=== PATIENT | male | born 1980 | race Caucasian/White ===

== ENCOUNTER → 2017-06-25 | Outpatient (CLI) | payer BC ==
--- NOTE | 2017-06-25 10:18 | MR ---
EXAMINATION TYPE: MR brain and iac wo/w con DATE OF EXAM: 06/25/2017 COMPARISON: NONE HISTORY: Tinnitus, SALAZAR, Cranial nerve disorder, dizzy TECHNIQUE: Multiplanar, multisequence images of the brain and brainstem is performed without and with IV contras t, utilizing 12 mL intravenous Gadavist . FINDINGS: Diffusion weighted images demonstrate no evidence of a recent infarct or other diffusion ab normality. There is no extra-axial fluid collection or significant white matter signal abnormality. The ventricular system and cisternal spaces are normal in size and appearance. The brain volume is age appropriate. Midline structures demonstrate normal morphology. The craniocervical junction appears within normal limits. Post contrast images demonstrate no abnormal enhancement. The dural venous sinuses appear pa tent. The visualized sinuses are clear and the globes are intact. There is no evidence of cerebellar pontine angle mass. The 7th and 8th cranial nerve roots demonstrat e no abnormal enhancement. No focal mass is seen surrounding the 7th or 8th cranial nerves to indicat e acoustic for neuroma. Mastoid air cells are well aerated. Brainstem is unremarkable. No widening of the porus acusticus. IMPRESSION: Unremarkable MRI of the brain and IACs with no evidence of abnormal enhancement of the 7t h or 8th cranial nerves are acoustic schwannoma.
== END | disposition home or self-care (01) ==
LOC: RADMRIMAIN 08:22
PROVIDERS: ATTEND Otolaryngology
DX: G52.9 Cranial nerve disorder, unspecified (principal); H93.19 Tinnitus, unspecified ear; R51 Headache
CPT/HCPCS: 70553; A9581

== ENCOUNTER 2017-07-23 07:51 | Emergency (ER) | payer BC ==
[2017-07-23 08:00] VITALS: BP 153/86; PULSE 87; RESP 20; TEMP 98.8
[2017-07-23] MEDS ORDERED: DEXAMETHASONE SOD PHOSPHATE 10 MG/ML 1 ML VIAL IM STA (08:04)
[2017-07-23] MEDS ORDERED: AMOXICILLIN 500MG STARTER PACK 3 CAP BTL PO STA (08:05)
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
== END 2017-07-23 08:28 | disposition home or self-care (01) ==
LOC: EC 07:51
DX: J02.9 Acute pharyngitis, unspecified (principal); R06.00 Dyspnea, unspecified; F17.200 Nicotine dependence, unspecified, uncomplicated; Z79.899 Other long term (current) drug therapy
CPT/HCPCS: 99283 ×2; 96372 ×2; J1100

== ENCOUNTER → 2018-06-06 | Outpatient (CLI) | payer BC | END | disposition home or self-care (01) | LOC: RADUSWWP 13:06 | PROVIDERS: ATTEND Family Medicine | DX: I73.9 Peripheral vascular disease, unspecified (principal) | CPT/HCPCS: 93923 ==

== ENCOUNTER 2018-06-19 11:58 | Emergency (ER) | payer BC ==
[2018-06-19 12:03] VITALS: RESP 18
[2018-06-19 12:59] LABS: Amphetamine Screen,Urine Not Detected (NotDetected); Barbiturate Screen,Urine Not Detected (NotDetected); Benzodiazepines Screen,Urine Detected (NotDetected); Cocaine Screen,Urine Not Detected (NotDetected); Methadone Screen, Urine Not Detected (NotDetected); Opiate Screen,Urine Not Detected (NotDetected); Oxycodone Screen, Urine Not Detected (NotDetected); Phencyclidine Screen,Urine Not Detected (NotDetected); Tricyclic Antidepressant,Urine Not Detected (NotDetected); Urn Cannabinoid Scrn Detected (NotDetected)
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
[2018-06-19 13:46] VITALS: BP 114/76; PULSE 64; TEMP 97.7
== END 2018-06-19 13:44 | disposition home or self-care (01) ==
LOC: EC 11:58
DX: F32.9 Major depressive disorder, single episode, unspecified (principal); F17.200 Nicotine dependence, unspecified, uncomplicated; Z79.899 Other long term (current) drug therapy
CPT/HCPCS: 80306; 82075; 99284

== ENCOUNTER → 2019-09-01 | Outpatient (CLI) | payer BC ==
--- NOTE | 2019-09-01 13:39 | CT ---
EXAMINATION TYPE: CT ankle RT wo con DATE OF EXAM: 09/01/2019 COMPARISON: None available HISTORY: 38-year-old male right ankle pain following fall TECHNIQUE: Contiguous axial scanning of the right ankle without IV contrast. Coronal and sagittal rec onstructions performed. 3-D reconstructions generated on a dedicated workstation. CT DLP: 260.9 mGycm Automated exposure control for dose reduction was used. FINDINGS: Overlying plaster cast. There is a comminuted fracture of the distal tibial metaphysis and epiphysis. Comminution and nondisp laced fracture fragments extend to the anterior colliculus of the medial malleolus. There is additional comminution which extends along the anterior half of the distal tibia disrupting the articular surface. There is a articular measuring 2.4 cm wide by 3.0 cm AP. Large fragment compri sing the anterior inferior tibial tubercle measuring 5.1 cm craniocaudal by 3.9 cm wide by 1.7 cm AP. There is a second dominant fracture fragment measuring 2.4 x 1.3 cm embedded within the diastases wit h cortex rotated into the fracture site. Number of additional smaller comminuted fracture fragments a re present. 9 mm corticated ossific density below the distal fibula suggesting sequela of remote injury. There is additional 1.1 cm wide and 1.0 cm AP osteochondral injury of the anterior to mid medial wilbert r dome and a second impaction fracture of the posterior lateral talar dome measuring 1.6 cm AP by 9 m m wide and with 3 mm articular surface depression. Associated generalized soft tissue swelling. IMPRESSION: 1. Comminuted impacted fracture of the distal tibial metaphysis and epiphysis. Nondisplaced comminuti on extends into the anterior colliculus of the medial malleolus. 2. There is a diastatic dominant fracture fragment incorporating the anterior inferior tibial tubercl e measuring 5.1 x 3.9 x 1.7 cm. The diastases results in articular surface disruption and a bony gap of the distal tibia measuring 3.0 x 2.4 cm. 3. A second dominant fracture fragment measuring 2.4 x 1.3 cm embedded within the diastases with dewey ex rotated into the fracture site. A number of additional smaller comminuted fracture fragments are p resent. 4. 2 osteochondral lesions/impaction fractures of the talar dome (1.1 x 1.0 cm along the anterior to mid medial talar dome and the second measuring 1.6 x 0.9 cm along the posterior lateral talar dome an d 3 mm articular surface depression).
== END | disposition home or self-care (01) ==
LOC: RADCTMAIN 12:36
PROVIDERS: ATTEND Orthopaedic Surgery
DX: S82.251A Displaced comminuted fracture of shaft of right tibia, initial encounter for closed fracture (principal); S82.54XA Nondisplaced fracture of medial malleolus of right tibia, initial encounter for closed fracture; M94.9 Disorder of cartilage, unspecified

== ENCOUNTER 2019-09-10 08:31 | Day surgery (SDC) | payer BC ==
[2019-09-09 11:50] VITALS: BMI 34.0
[~2019-09-10 08:31] MED LIST: DEXAMETHASONE SOD PHOSPHATE 10 MG/ML 1 ML VIAL IV ONE; HYDROmorphone 0.5 MG/0.5 ML SYRINGE IVP PRN; LACTATED RINGERS 1,000 ML IV SCH; LIDOCAINE 1% (10MG/ML) FOR IV START INTRADERMA PRN; ONDANSETRON 4 MG/2 ML VIAL IVP ONE; SCOPOLAMINE 1.5MG/72HR PATCH TRANSDERM ONE; ceFAZolin 3 GM in SODIUM CHLORIDE 0.9% 100 ML IVPB ONE
[2019-09-10 08:59] VITALS: TEMP 98
[2019-09-10] MEDS ORDERED: MIDAZOLAM 2 MG/2 ML VIAL IV ONE (09:33)
[2019-09-10] MEDS ORDERED: fentaNYL (PF) 50 MCG/ML 2 ML AMP IV ONE (09:33)
[2019-09-10] MEDS ORDERED: ePHEDrine SULFATE/0.9% NACL/PF 50 MG/5 ML SYRINGE IV ONE (10:08)
[2019-09-10] MEDS ORDERED: MIDAZOLAM 2 MG/2 ML VIAL ONE (10:08)
[2019-09-10] MEDS ORDERED: LIDOCAINE 1% INJ 10MG/ML (20 ML MDV) ONE (10:08)
[2019-09-10] MEDS ORDERED: KETOROLAC 30 MG/ML 1 ML VIAL ONE (10:08)
[2019-09-10] MEDS ORDERED: fentaNYL (PF) 50 MCG/ML 2 ML AMP ONE (10:08)
[2019-09-10] MEDS ORDERED: PROPOFOL 10 MG/ML 20 ML VIAL IV ONE (10:08)
[2019-09-10] MEDS ORDERED: LIDOCAINE 2%-EPI 1:100,000 20 ML VIAL ONE (10:08)
[2019-09-10] MEDS ORDERED: ROPIVACAINE 5 MG/ML 30 ML VIAL ONE (10:08)
--- NOTE | 2019-09-10 10:48 | P.ANPRN ---
Procedure Note - Anesthesia - Nerve Block Performed Right Popliteal Single Time Out Performed: Yes Date of Procedure: 09/10/19 Procedure Start Time: Procedure Stop Time: Location of Patient: PreOp Indication: Acute Post-Operative Pain, Dx/Pain Location, Requested by Surgeon Sedation Type: Sedate with meaningful contact maintained Preparation: Sterile Prep Position: Supine Catheter: None Needle Types: Pajunk Needle Gauge: 18 Ultrasound used to visualize needle placement: Yes Ultrasound used to observe medication spread: Yes Injectate: Other (see comment) (10ml 0.5% Ropivacaine + 10ml 2% Lidocaine with 1:200,000 epi + 4mg Dexamethasone) Blood Aspirated: No Pain Paresthesia on Injection Noted: No Resistance on Injection: Normal Image Stored and Saved: Yes Events: Uneventful and Well Tolerated
--- NOTE | 2019-09-10 12:06 | FL ---
EXAMINATION TYPE: FL guidance operating room, XR ankle limited RT DATE OF EXAM: 09/10/2019 CLINICAL HISTORY: Right ankle fracture. TECHNIQUE: Fluoroscopy. Limited intraoperative views right ankle. COMPARISON: CT right ankle September 01, 2019. FINDINGS: Fluoroscopic guidance was provided during open reduction internal fixation procedure perfo rmed by Dr. Cordova. A total of 1.49 minutes of fluoroscopic time was utilized during the procedure and 5 spot intraoperative spot images are acquired. Intraoperative spot images show placement of a lateral fixating plate extending anteriorly distal tib ial level with additional fixating screw through the medial malleolus. Satisfactory alignment is seen after reduction and fixation. IMPRESSION: As Above.
--- NOTE | 2019-09-10 12:09 | P.OP ---
Date of Procedure: 09/10/19 Preoperative Diagnosis: 1. Right intra-articular distal tibial pilon fracture 2. Current every day cigarette smoker 3. BMI of 35 Postoperative Diagnosis: Same Procedure(s) Performed: 1. Open reduction and internal fixation of right distal tibia Pilon fracture 2. Application of short leg splint by physician, right leg Anesthesia: nilay SUAREZ Surgeon: Renard Cordova Bender Machine Operator #1: Deric Bradley Estimated Blood Loss (ml): 10 IV fluids (ml): 1,200 Pathology: none sent Condition: stable Disposition: PACU Indications for Procedure: The patient is a very pleasant 38-year-old male with a medical history significant for cigarette smoking who presented to my office with a distal tibia pilon fracture. He was sent for computed tomography scan which showed a large anterolateral fragment with a large intercalary osteochondral fragment. There is significant disruption of the joint surface and a nondisplaced fracture in the anterior colliculus of the medial malleolus. I recommended open reduction and internal fixation in an attempt to restore stability to the ankle and aligned the joint surface. The patient understands the severity of this intra- articular injury and the high likelihood of developing arthritis. We decided to perform a straight anterior approach in the event that he develops arthritis and requires a fusion in the future. We discussed the risks and benefits of surgery including but not limited to risk of anesthesia, infection, delayed wound healing, superficial wound necrosis, nonunion, malunion, post radical arthritis, stiffness, damage to local blood vessels or nerves, DVT, PE, other medical complications, and inability to regain preinjury level of function, and possibly loss of life or limb. The patient voiced his understanding that we'll be to the most common complications other less common complications are possible. He provided his verbal and written consent to go forward with surgery. Description of Procedure: The patient was identified in preoperative holding and the correct right leg was marked with my initials. I reviewed the consent form with the patient and all of his questions were answered. A block was given by anesthesia. The patient was then brought back to the operating room by anesthesia. He was transferred to the OR table where a general anesthetic and preoperative antibiotics were given. A tourniquet was applied to the proximal aspect of the right leg. A bump was placed under the right buttock to internally rotate the leg. A ramp was placed under the right leg to facilitate imaging. All bony prominences were well-padded. The right leg was then prepped and draped in the standard sterile fashion. Prior to starting surgery timeout was performed identifying the correct patient, operative extremity, and procedure. The patient's leg was then elevated, exsanguinated with an Esmarch bandage, and the tourniquet was inflated to 250 mmHg. I began outlining a straight anterior approach to the ankle. Skin incision was made with a scalpel and dissection was carried down carefully through subcutaneous tissues taking care to not undermine the wound. The superficial peroneal nerve was identified and carefully retracted. Crossing veins were controlled with electrocautery. The extensor retinaculum was incised longitudinally in line with the skin incision. I bluntly developed the interval between the tibialis anterior and EHL tendon. Crossing vessels were controlled with electrocautery. The periosteum over the distal tibial sharply incised. The periosteum distally. Hemorrhagic and the fracture site was identified. Early clot and callus was carefully debrided with a scalpel. I was able to carefully booked open the anterolateral fracture to gain access to the ankle joint. There were small osteochondral fragments which were debrided. There was one large intercalary fragment that was flipped 90. This was completely devoid of any soft tissue connections. This piece was removed and handed off to the back table. The joint was thoroughly irrigated to remove debris. A loose osteochondral fragment was then keyed back into the joint and held with a K wire. I then booked closed the anterolateral fragment using a dental pick. A [id number] reduction clamp was used to hold this fragment reduced once the apex of the fracture was keyed in anatomically. The second сергей of the clamp was placed over the posterior medial tibia through stab incision. Clinically at the apex of the fracture appeared anatomically reduced and there is no gapping of the fracture line. Fluoroscopy was used to verify reduction on both an AP and lateral view. I then placed a short anterolateral plate through the wound and held in place with K wires. The position of the plate was verified. A nonlocking 3.5 mm screw was placed just proximal to the apex of the fracture bringing it down to bone. Distally the plate appeared to be sitting in excellent position. Proximally the plate was sitting slightly posterior but on the lateral view it was still centered on the tibia. A nonlocking 3.5 screw was placed in the most proximal hole. I then placed a nonlocking 3.5 mm lag screws distally to generate additional compression across the anterolateral fragment. 2 locking screws were placed distally and a final locking screws placed proximal to the fracture. Due to the computed tomography scan showing a nondisplaced anterior calyculus medial malleolus I placed a percutaneously nonlocking 2.7 mm screw through the anterior calyculus. Final fluoroscopic images were taken showing excellent reduction on the lateral view of the plafond and a stable ankle mortise. The wound was thoroughly irrigated. The extensor retinaculum was closed with a running 0 Vicryl. The deep subcutaneous fat layer was closed with interrupted 2-0 Vicryl. The skin was closed with 3-0 Monocryl. The skin was closed with 3-0 nylon Algor modification of the Donati stitch. The tourniquet was let down. I verified that all instrument, sponge, and sharp counts were correct. A sterile dressing was applied. A well-padded bulky Whitman splint was placed with the ankle at neutral. The patient was awoken from his anesthetic, transferred from the OR table to the [facility], and brought to recovery having tolerated the procedure well. Deric Bradley PA-C was required as a skilled education administrative assistant for patient positioning, surgical exposure, retraction, placement of hardware, closure of wound, and application of splint. Plan: The patient is going to be discharged home as an outpatient if his comfort will. If he needs to stay overnight for pain control I think that is reasonable given his fracture. If he states he will require 2 doses of postoperative antibiotics. He will need DVT prophylaxis with Lovenox while in-house and can discharge home on aspirin. He is to remain strictly nonweightbearing on his operative extremity.
[2019-09-10] MEDS ORDERED: HYDROmorphone 1 MG/ML 1 ML SYRINGE IVP PRN (12:29)
[2019-09-10] MEDS ORDERED: HYDROmorphone 0.5 MG/0.5 ML SYRINGE IVP PRN ×2 (12:29)
[2019-09-10] MEDS ORDERED: ONDANSETRON 4 MG/2 ML VIAL IVP PRN (12:29)
[2019-09-10] MEDS ORDERED: SENNOSIDES-DOCUSATE SODIUM 1 EACH TAB PO PRN (12:29)
[2019-09-10] MEDS ORDERED: HYDROcodone/APAP 5-325MG 1 EACH TAB PO PRN ×2 (12:29)
[2019-09-10] MEDS ORDERED: LACTATED RINGERS 1,000 ML IV SCH (12:30)
[2019-09-10] MEDS ORDERED: LACTATED RINGERS 1,000 ML IV ONE (12:46)
[2019-09-10 13:34] VITALS: RESP 16
[2019-09-10 13:56] VITALS: BP 141/84; PULSE 68
[2019-09-11] MEDS ORDERED: ENOXAPARIN 40 MG/0.4 ML SYRINGE SQ SCH (09:00)
== END 2019-09-10 14:19 | disposition home or self-care (01) ==
LOC: OR 08:31 → EDSTATUS 10:05 → OR 14:19
PROVIDERS: ATTEND Orthopaedic Surgery
DX: S82.874A Nondisplaced pilon fracture of right tibia, initial encounter for closed fracture (principal); F17.210 Nicotine dependence, cigarettes, uncomplicated; W17.89XA Other fall from one level to another, initial encounter; Y93.39 Activity, other involving climbing, rappelling and jumping off; Z68.35 Body mass index [BMI] 35.0-35.9, adult
CPT/HCPCS: 27827; 64447; 64450; 76942; 87635; 73600; C1713; J2250; J1100; J0690; J2405; J2001; J3010; J1885; J2795; J2704; J1170; 64445

== ENCOUNTER 2024-07-08 21:00 | Emergency (ER) | payer BC ==
[2024-07-08 21:10] VITALS: BP 164/85; PULSE 83; RESP 18; TEMP 98.2
[2024-07-08 22:06] LABS: Amphetamine Screen,Urine Not Detected (NotDetected); Barbiturate Screen,Urine Not Detected (NotDetected); Benzodiazepines Screen,Urine Not Detected (NotDetected); Cocaine Screen,Urine Not Detected (NotDetected); Methadone Screen, Urine Not Detected (NotDetected); Opiate Screen,Urine Not Detected (NotDetected); Oxycodone Screen, Urine Not Detected (NotDetected); Phencyclidine Screen,Urine Not Detected (NotDetected); Tricyclic Antidepressant,Urine Detected (NotDetected); Urn Cannabinoid Scrn Detected (NotDetected)
--- NOTE | 2024-07-08 23:20 | ED ---
Psych HPI - General Chief Complaint: Psychiatric Symptoms Stated Complaint: Mental Health Time Seen by Provider: 07/08/24 21:12 Source: patient, RN notes reviewed Mode of arrival: ambulatory Limitations: no limitations - History of Present Illness Initial Comments: 43-year-old male presents emergency department with chief complaint of anxiety, panic attacks. Patient states symptoms have been increasing to the point where he states he is at his breaking point. Patient denies any current plan to harm self. Denies any homicidal nation. He does use marijuana denies any alcohol abuse he is on multiplications for anxiety without relief of symptoms. Patient denies any psychiatrist or counseling - Related Data Home Medications Medication Instructions Recorded Confirmed Ibuprofen [Advil] 200 mg PO DIRECTED PRN 09/09/19 09/10/19 Multivitamins, Thera [Multivitamin 1 tab PO DAILY 09/09/19 09/10/19 (formulary)] Naproxen Sodium [Aleve] 220 mg PO DAILY PRN 09/09/19 09/10/19 Albers (Unknown Dose) 1 tab PO DIRECTED 09/09/19 09/10/19 Previous Rx's Medication Instructions Recorded Aspirin 325 mg PO DAILY #14 tab 09/10/19 Docusate [Colace] 100 mg PO BID #28 capsule 09/10/19 HYDROcodone/APAP 10-325MG [Albers 1 tab PO Q4HR PRN 3 Days #18 tab 09/10/19 10-325] oxyCODONE HCL/ACETAMINOPHEN 1 tab PO Q4HR PRN 3 Days #18 tab 09/10/19 [Percocet 10-325 mg] Allergies Allergy/AdvReac Type Severity Reaction Status Date / Time No Known Allergies Allergy Verified 07/08/24 21:04 Review of Systems ROS Statement: Those systems with pertinent positive or pertinent negative responses have been documented in the HPI. ROS Other: All systems not noted in ROS Statement are negative. Past Medical History Additional Past Medical History / Comment(s): FX RIGHT ANKLE- HAS SPLINT ON AND USING CRUTCHES, herniated disk History of Any Multi-Drug Resistant Organisms: None Reported Past Surgical History: Orthopedic Surgery Additional Past Surgical History / Comment(s): R ankle Past Anesthesia/Blood Transfusion Reactions: Motion Sickness Additional Past Anesthesia/Blood Transfusion Reaction / Comment(s): NO ANESTHESIA HX. Past Psychological History: Anxiety, Depression Smoking Status: Vaper Past Alcohol Use History: Occasional Past Drug Use History: Marijuana - Past Family History Father Family Medical History: Cancer General Exam Limitations: no limitations General appearance: alert, in no apparent distress, anxious Head exam: Present: atraumatic, normocephalic, normal inspection Eye exam: Present: normal appearance, PERRL, EOMI. Absent: scleral icterus, conjunctival injection, periorbital swelling ENT exam: Present: normal exam, normal oropharynx, mucous membranes moist Neck exam: Present: normal inspection, full ROM. Absent: tenderness, meningismus, lymphadenopathy Respiratory exam: Present: normal lung sounds bilaterally. Absent: respiratory distress, wheezes, rales, rhonchi, stridor Cardiovascular Exam: Present: regular rate, normal rhythm, normal heart sounds. Absent: systolic murmur, diastolic murmur, rubs, gallop, clicks Neurological exam: Present: alert, oriented X3 Psychiatric exam: Present: anxious Course Vital Signs 07/08/24 21:05 Temperature 98.2 F Pulse Rate 83 Respiratory 18 Rate Blood Pressure 164/85 O2 Sat by Pulse 99 Oximetry Medical Decision Making - Medical Decision Making Was pt. sent in by a medical professional or institution (Dr. PA, NEON MOLDER, urgent care, hospital, or retirement...) When possible be specific @ -No Did you speak to anyone other than the patient for history (EMS, parent, family, police, friend...)? What history was obtained from this source @ -No Did you review nursing and triage notes (agree or disagree)? Why? @ -I reviewed and agree with nursing and triage notes Were old charts reviewed (outside hosp., previous admission, EMS record, old EKG, old radiological studies, urgent care reports/EKG's, retirement records)? Report findings @ -No old charts were reviewed Differential Diagnosis (chest pain, altered mental status, abdominal pain women, abdominal pain men, vaginal bleeding, weakness, fever, dyspnea, syncope, headache, dizziness, GI bleed, back pain, seizure, CVA, palpatations, mental health, musculoskeletal)? @ -Differential Mental Health Depression, anxiety, bipolar, psychosis, schizophrenia, borderline personality, situational depression, adjustment disorder, behavioral disorder, brain tumor, malingering, substance abuse, encephalopathy, medication reaction, dementia, hypothyroidism, degenerative neurologic disorder, lupus.... This is not meant to be all-inclusive list EKG interpreted by me (3pts min.). @ -None X-rays interpreted by me (1pt min.). @ -None done CT interpreted by me (1pt min.). @ -None done U/S interpreted by me (1pt. min.). @ -None done What testing was considered but not performed or refused? (CT, X-rays, U/S, labs)? Why? @ -None What meds were considered but not given or refused? Why? @ -None Did you discuss the management of the patient with other professionals (professionals i.e. , PA, NEON MOLDER, lab, RT, psych nurse, community mental health social worker, crisis intervention counselor, teacher, intelligence support officer, special education case manager)? Give summary @ -EPS evaluated patient recommended outpatient treatment Was smoking cessation discussed for >3mins.? @ -No Was critical care preformed (if so, how long)? @ -No Were there social determinants of health that impacted care today? How? (Homelessness, low income, unemployed, alcoholism, drug addiction, transportation, low edu. Level, literacy, decrease access to med. care, senior living, rehab)? @ -No Was there de-escalation of care discussed even if they declined (Discuss DNR or withdrawal of care, Hospice)? DNR status @ -No What co-morbidities impacted this encounter? (DM, HTN, Smoking, COPD, CAD, Cancer, CVA, ARF, Chemo, Hep., AIDS, mental health diagnosis, sleep apnea, morbid obesity)? @ -None Was patient admitted / discharged? Hospital course, mention meds given and route, prescriptions, significant lab abnormalities, going to OR and other pertinent info. @ -[Discharge presenting symptoms presented for psychiatric evaluation patient is anxious not suicidal homicidal patient discharged after EPS recommendations. Undiagnosed new problem with uncertain prognosis? @ -No Drug Therapy requiring intensive monitoring for toxicity (Heparin, Nitro, Insulin, Cardizem)? @ -No Were any procedures done? @ -No Diagnosis/symptom? @Anxiety Acute, or Chronic, or Acute on Chronic? @ -Acute Uncomplicated (without systemic symptoms) or Complicated (systemic symptoms)? @ -Uncomplicated Side effects of treatment? @ -No Exacerbation, Progression, or Severe Exacerbation? @ -No Poses a threat to life or bodily function? How? (Chest pain, [place], [place], pneumonia, PE, COPD, DKA, ARF, appy, cholecystitis, CVA, Diverticulitis, Homicidal, Suicidal, threat to staff... and all critical care pts) @ -No - Lab Data Lab Results 07/08/24 07/08/24 Range/Units 21:11 21:15 Urine Opiates Screen Not Detected (NotDetected) Ur Oxycodone Screen Not Detected (NotDetected) Urine Methadone Screen Not Detected (NotDetected) Ur Barbiturates Screen Not Detected (NotDetected) U Tricyclic Antidepress Detected H (NotDetected) Ur Phencyclidine Scrn Not Detected (NotDetected) Ur Amphetamines Screen Not Detected (NotDetected) U Methamphetamines Scrn Not Detected (NotDetected) U Benzodiazepines Scrn Not Detected (NotDetected) Urine Cocaine Screen Not Detected (NotDetected) U Marijuana (THC) Screen Detected H (NotDetected) SARS-CoV-2 (PCR) Not Detected (Not Detectd) Disposition Clinical Impression: Acute anxiety Disposition: HOME SELF-CARE Condition: Stable Instructions (If sedation given, give patient instructions): Generalized Anxiety Disorder (ED) Additional Instructions: Please return to the Emergency Department if symptoms worsen or any other concerns. Is patient prescribed a controlled substance at d/c from ED?: No Referrals: Cristofer Elaine [Primary Care Provider] - 1-2 days Time of Disposition: 01:08
[2024-07-09] MEDS: LORazepam 1 MG TAB PO STA (01:28)
== END 2024-07-09 01:28 | disposition home or self-care (01) ==
LOC: EC 21:00
DX: F41.9 Anxiety disorder, unspecified (principal); F17.290 Nicotine dependence, other tobacco product, uncomplicated
CPT/HCPCS: 80306; 82075; 87635; 99283